=== PATIENT | female | born 1965 | race Caucasian/White ===

== ENCOUNTER 2016-11-22 19:23 | Inpatient (IN) | payer BC ==
[~2016-11-22] VITALS: Ht 170.2 cm; Wt 75.0 kg
--- NOTE | 2016-12-01 17:15 | NUR ---
1710 REPORT GIVEN TO NENA OLIVARES AT [address], FOR PATIENT TO TRANSFER TO THEIR FACILITY VIA EMS TODAY
== END 2016-12-01 19:25 | disposition short-term general hospital (02) | DRG 315 ==
LOC: ER 19:23 → MED 22:02
PROVIDERS: ADMIT Internal Medicine
PROC: B24BZZ4 Ultrasonography of Heart with Aorta, Transesophageal (ICD-10-PCS; principal; 2016-11-24)
DX: T82.7XXA Infection and inflammatory reaction due to other cardiac and vascular devices, implants and grafts, initial encounter (principal); N39.0 Urinary tract infection, site not specified; R78.81 Bacteremia; N17.9 Acute kidney failure, unspecified; I82.621 Acute embolism and thrombosis of deep veins of right upper extremity; T82.868A Thrombosis due to vascular prosthetic devices, implants and grafts, initial encounter; B95.61 Methicillin susceptible Staphylococcus aureus infection as the cause of diseases classified elsewhere; D50.9 Iron deficiency anemia, unspecified; Z85.038 Personal history of other malignant neoplasm of large intestine; E87.6 Hypokalemia; E86.0 Dehydration; I10 Essential (primary) hypertension; E11.9 Type 2 diabetes mellitus without complications; R50.9 Fever, unspecified; Z93.4 Other artificial openings of gastrointestinal tract status; D69.6 Thrombocytopenia, unspecified; K76.0 Fatty (change of) liver, not elsewhere classified; Z79.84 Long term (current) use of oral hypoglycemic drugs; Z79.891 Long term (current) use of opiate analgesic; Z79.899 Other long term (current) drug therapy; E78.5 Hyperlipidemia, unspecified; Z80.0 Family history of malignant neoplasm of digestive organs; Z86.010 Personal history of colon polyps
CPT/HCPCS: 36415; 87507; 93312; 96361; 96374; 96375; J0780; J1650; J2704; J3370; J7050